=== PATIENT | female | born 1970 | race Caucasian/White ===

== ENCOUNTER 2017-04-11 23:33 | Emergency (ER) | payer BC ==
[~2017-04-11] VITALS: Ht 162.6 cm; Wt 111.4 kg
[2017-04-11] MEDS ORDERED: CITALOPRAM HBR10 MG PO (23:55)
[2017-04-11] MEDS ORDERED: SYNTHROID RP0.1 MG PO (23:55)
[2017-04-11] MEDS ORDERED: AMITRIPTYLINE H50 M1 PO (23:56)
[2017-04-11] MEDS ORDERED: CYCLOBENZ5 MG (23:56)
[2017-04-11] MEDS ORDERED: HCTZ 25MG25 MG PO (23:56)
[2017-04-11] MEDS ORDERED: NAPROSYN500 M1 (23:56)
[2017-04-12 00:30] VITALS: BP 164/98
== END 2017-04-12 00:30 | disposition home or self-care (01) ==
LOC: ED 23:33
DX: S61.011A Laceration without foreign body of right thumb without damage to nail, initial encounter (principal); W27.4XXA Contact with kitchen utensil, initial encounter; Y92.000 Kitchen of unspecified non-institutional (private) residence as the place of occurrence of the external cause; I10 Essential (primary) hypertension; M06.9 Rheumatoid arthritis, unspecified; E03.9 Hypothyroidism, unspecified; Z23 Encounter for immunization
CPT/HCPCS: 90715

== ENCOUNTER → 2021-01-20 | Outpatient (CLI) | payer BC ==
[~2021-01-20] MED LIST: AMITRIPTYLINE H50 M1 PO; CITALOPRAM HBR10 MG PO; CYCLOBENZ5 MG; HCTZ 25MG25 MG PO; NAPROSYN500 M1; SYNTHROID RP0.1 MG PO
== END ==
LOC: RAD 07:00
DX: R10.11 Right upper quadrant pain (principal)